=== PATIENT | male | born 1950 | race African-American/Black ===

== ENCOUNTER 2017-12-15 23:51 | Emergency (ER) | payer OTHER ==
[2017-12-16 01:15] LABS: Absolute Lymphocytes (CBC) 1.9 K/uL (0.7-4.9); Absolute Monocytes 1.1 K/uL (0.1-1.3); Absolute Neutrophil 16.8 K/uL (1.8-8.0); Basophils % 0.4 % (0-1.3); Eosinophils % 0.2 % (0-4.4); Lymphocytes % 9.4 % (15.3-44.8); MCH 27.2 pg (27.0-35.0); Monocytes % 5.5 % (3.3-12.3)
[2017-12-16] MEDS ORDERED: ACETAMINOPHEN 500 MG TAB ONE (02:10)
[2017-12-16 02:18] LABS: Protime INR 1.08
[2017-12-16 02:35] LABS: ALT/SGPT 19 U/L (12-78); AST/SGOT 15 U/L (15-37); Albumin 3.2 g/dL (3.4-5.0); Alkaline Phosphatase 127 U/L (45-117); BUN Blood Urea Nitrogen 15 mg/dL (7-18); Bicarbonate 32 mmol/L (21-32); Bilirubin Direct 0.1 mg/dL (0-0.2); Bilirubin Total 0.3 mg/dL (0.2-1.0); Glucose Level 133 mg/dL (74-106); Magnesium 1.5 mg/dL (1.8-2.4); NT PRO-BNP 395 pg/mL (<125); Potassium 4.6 mmol/L (3.5-5.1); Protein, Total 7.9 g/dL (6.4-8.2); Sodium Level 142 mmol/L (136-145); Troponin (Emerg Dept Use Only) < 0.02 ng/mL (0.0-0.045)
[2017-12-16] MEDS ORDERED: VANCOMYCIN 1 GM/VIAL ONE (02:59)
[2017-12-16] MEDS ORDERED: NA CHLORIDE 0.9% 500 ML ONE (02:59)
[2017-12-16] MEDS ORDERED: NA CHLORIDE 0.9% 1,000 ML ONE (03:00)
[2017-12-16] MEDS ORDERED: CEFTRIAXONE/SWI 1gm 2 GM/20 ML SYR ONE (03:00)
[2017-12-16] MEDS ORDERED: MAGNESIUM SULFATE 1 gm IVPB 1 GM/100 ML BAG IV ONE (03:01)
[2017-12-16] MEDS ORDERED: BENZONATATE 100 MG CAP PO ONE (04:58)
--- NOTE | 2017-12-16 05:49 | ER ---
Nurse's Notes [facility] Name: Cory Etienne Jr Age: 67 yrs Sex: Male : 1950 Arrival Date: 12/15/2017 Time: 23:51 Bed 4 Private MD: Diagnosis: Airway narrowing at the epiglotic/aryepiglotic folds Presentation: 12/15 23:55 Presenting complaint: Patient states: that he has a sore throat and has pain with fc swallowing. Started today. Transition of care: patient was not received from another setting of care. Onset of symptoms was December 15, 2017. Risk Assessment: Do you want to hurt yourself or someone else? Patient reports no desire to harm self or others. Initial Sepsis Screen: Does the patient meet any 2 criteria? RR > 20 per min. Temp <36.0*C (96.8*F)) or > 38.3*C (100.9*F). HR > 90 bpm. Does the patient have a suspected source of infection? Yes: Productive cough/pneumonia Other: sore throat. Care prior to arrival: None. 23:55 Method Of Arrival: Ambulatory 23:55 Acuity: SALOME 3 Triage Assessment: 12/16 00:45 Respiratory: the patient has mild shortness of breath. jd3 00:45 Respiratory: Onset: The symptoms/episode began/occurred at an unknown time. jd3 Historical: - Allergies: 00:12 Lisinopril; fc 00:12 Dilantin; fc 00:12 Morphine; fc - Home Meds: 00:12 omeprazole 40 mg Oral cpDR 1 cap once daily [Active]; [place] 7.5-325 mg Oral tab 1 tab fc three times a day [Active]; tamsulosin 0.4 mg oral cp24 1 cap once daily [Active]; metoprolol tartrate 50 mg Oral tab 1 tab 2 times per day [Active]; atorvastatin 80 mg oral tab 1 tab once daily [Active]; Lasix 80 mg Oral tab 1 tab 2 times per day [Active]; - PMHx: 00:12 Diabetes - IDDM; Hypertension; Angina; COPD; syncope; Obesity; tachycardia; High fc Cholesterol; - PSHx: 00:12 RIGHT FEMUR SX; LEFT SHOULDER SX; FENTANYL PAIN PUMP; BACK TUMOR REMOVAL; WRIST SX; fc Hernia repair; - Immunization history:: Last tetanus immunization: unknown, Flu vaccine is not up to date. - Social history:: Smoking status: Patient/guardian denies using tobacco. - Ebola Screening: : Patient negative for fever greater than or equal to 101.5 degrees Fahrenheit, and additional compatible Ebola Virus Disease symptoms Patient denies exposure to infectious person Patient denies travel to an Ebola-affected area in the 21 days before illness onset. Screenin:08 Abuse screen: Denies threats or abuse. Nutritional screening: No deficits noted. fc Tuberculosis screening: No symptoms or risk factors identified. Fall Risk None identified. Assessment: 00:10 General: Appears uncomfortable, Behavior is calm, cooperative, appropriate for age. jd3 Pain: Denies pain. Neuro: Level of Consciousness is awake, alert, obeys commands, Oriented to person, place, time, situation. Cardiovascular: Heart tones S1 S2 present Capillary refill < 3 seconds Patient's skin is warm and dry. Rhythm is irregular. Respiratory: Reports shortness of breath Airway is patent Respiratory effort is even, unlabored, Respiratory pattern is regular, symmetrical, Breath sounds are diminished pt with audible gurgling sounds with respirations pt denies having to clear throat. GI: Abdomen is obese, Patient currently denies abdominal pain, nausea, vomiting. : No signs and/or symptoms were reported regarding the genitourinary system. EENT: No signs and/or symptoms were reported regarding the EENT system. Derm: Skin is intact, Skin is dry, Skin is normal, Skin temperature is warm. Musculoskeletal: Circulation, motion, and sensation intact. Range of motion: intact in all extremities. 00:47 Reassessment: Patient appears in no apparent distress at this time. No changes from jd3 previously documented assessment. Patient and/or family updated on plan of care and expected duration. Pain level reassessed. Patient is alert, oriented x 3, equal unlabored respirations, skin warm/dry/pink. 01:39 Reassessment: Patient appears in no apparent distress at this time. No changes from jd3 previously documented assessment. Patient and/or family updated on plan of care and expected duration. Pain level reassessed. Patient is alert, oriented x 3, equal unlabored respirations, skin warm/dry/pink. 02:08 Reassessment: Patient appears in no apparent distress at this time. No changes from jd3 previously documented assessment. Patient and/or family updated on plan of care and expected duration. Pain level reassessed. Patient is alert, oriented x 3, equal unlabored respirations, skin warm/dry/pink. 03:11 Reassessment: Patient appears in no apparent distress at this time. No changes from jd3 previously documented assessment. Patient and/or family updated on plan of care and expected duration. Pain level reassessed. Patient is alert, oriented x 3, equal unlabored respirations, skin warm/dry/pink. 04:05 Reassessment: Patient appears in no apparent distress at this time. No changes from jd3 previously documented assessment. Patient and/or family updated on plan of care and expected duration. Pain level reassessed. Patient is alert, oriented x 3, equal unlabored respirations, skin warm/dry/pink. 05:08 Reassessment: Patient appears in no apparent distress at this time. No changes from jd3 previously documented assessment. Patient and/or family updated on plan of care and expected duration. Pain level reassessed. Patient is alert, oriented x 3, equal unlabored respirations, skin warm/dry/pink. 06:40 Reassessment: Patient appears in no apparent distress at this time. No changes from jd3 previously documented assessment. Patient and/or family updated on plan of care and expected duration. Pain level reassessed. Patient is alert, oriented x 3, equal unlabored respirations, skin warm/dry/pink. 07:30 Reassessment: Patient and/or family updated on plan of care and expected duration. Pain aa5 level reassessed. Report was given to MARIO Bolanos at [facility]. Pt and family were notified of wait time for EMS to transfer to [facility]. . Neuro: Level of Consciousness is awake, alert, obeys commands, Oriented to person, place, time, situation. Respiratory: Airway is patent Respiratory effort is even, unlabored. Derm: Skin is dry, Skin is normal, Skin temperature is warm. Vital Signs: 12/15 23:55 BP 135 / 96; Pulse 108; Resp 26; Temp 103.1(O); Pulse Ox 93% on R/A; Weight 172.37 kg fc (R); Height 5 ft. 9 in. (175.26 cm) (R); Pain 11/29; 12/16 00:47 Pulse 104; Resp 21 S; Pulse Ox 95% on 2 lpm NC; jd3 01:40 BP 155 / 106; Pulse 111; Resp 20 S; Pulse Ox 95% on 2 lpm NC; jd3 02:07 BP 171 / 75; Pulse 112; Resp 17 S; Temp 103.1(O); Pulse Ox 95% on 3 lpm NC; jd3 03:11 BP 155 / 76; Pulse 112; Resp 21 S; Pulse Ox 95% on 2 lpm NC; jd3 04:05 BP 129 / 60; Pulse 107; Resp 22 S; Pulse Ox 94% on 2 lpm NC; jd3 05:08 BP 135 / 64; Pulse 108; Resp 22 S; Temp 100.1(O); Pulse Ox 96% on 3 lpm NC; jd3 06:43 BP 122 / 79; Pulse 93; Resp 17 S; Pulse Ox 95% on 3 lpm NC; jd3 07:30 BP 145 / 88; Pulse 83; Resp 20 S; Temp 99.8(O); Pulse Ox 95% on 3 lpm NC; aa5 12/15 23:55 Body Mass Index 56.12 (172.37 kg, 175.26 cm) fc ED Course: 12/15 23:51 Patient arrived in ED. ag3 23:55 Arm band placed on Patient placed in an exam room, on a stretcher. fc 23:55 Patient has correct armband on for positive identification. Placed in gown. Bed in low fc position. Call light in reach. Side rails up X2. liquid chlorine operator on. Pulse ox on. NIBP on. 23:55 No provider procedures requiring assistance completed. fc 23:56 Varun Gallardo MD is Attending Physician. kdr 12/16 00:07 Triage completed. fc 00:19 Broderick Wolf RN is Primary Nurse. jd3 00:33 XRAY Chest (1 view) In Process Unspecified. EDMS 00:33 X-ray completed. Portable x-ray completed in exam room. Patient tolerated procedure ag1 well. 00:42 Radiology exam delayed due to lab results not completed at this time. (BUN/Creatinine). kw1 01:00 Inserted saline lock: 22 gauge in left antecubital area, using aseptic technique. Blood fc collected. 01:07 Radiology exam delayed due to lab results not completed at this time. (BUN/Creatinine). kw1 01:39 Radiology exam delayed due to lab results not completed at this time. (BUN/Creatinine). kw1 02:17 Radiology exam delayed due to lab results not completed at this time. (BUN/Creatinine). kw1 02:25 Lab(s) recollected, by me, sent to lab. Inserted 18 gauge 10 cm midline to right upper fc arm basilic vein on first attempt. Line with good blood return and flushes well. 03:49 CT Soft Tissue Neck W/contr In Process Unspecified. EDMS 03:[address] stretcher. kw1 06:46 pt declined at the [facility] by the ENT doctor behavioral modification assistant due to the physician and eb facility bot having the equipment to take care of the patient. 06:57 initiated a transfer with Day at the [facility]. eb 07:45 Patient transferred, IV remains in place. aa5 Administered Medications: 02:06 Drug: Tylenol 1000 mg Route: PO; jd3 04:21 Follow up: Response: No adverse reaction jd3 03:14 Drug: Rocephin - (cefTRIAXone) 2 grams Route: IVPB; Infused Over: 30 mins; Site: right jd3 antecubital; 04:21 Follow up: Response: No adverse reaction; IV Status: Completed infusion jd3 03:14 Drug: NS 0.9% 1000 ml Route: IV; Rate: 1 bolus; Site: left antecubital; jd3 03:15 Drug: Magnesium Sulfate 1 grams Route: IVPB; Infused Over: 1 hrs; Site: left jd3 antecubital; 04:57 Follow up: Response: No adverse reaction; IV Status: Completed infusion jd3 03:17 Drug: vancoMYCIN 15 mg/kg Route: IVPB; Site: right antecubital; jd3 05:51 Follow up: Response: No adverse reaction; IV Status: Completed infusion jd3 04:57 Drug: Tessalon Perle 200 mg Route: PO; jd3 05:43 Follow up: Response: No adverse reaction jd3 05:51 Drug: Decadron - Dexamethasone 10 mg Route: IVP; Site: left antecubital; jd3 Outcome: 05:48 ER care complete, transfer ordered by . kdr 07:45 Transferred by ground EMS to [facility], Transfer form completed. X-rays sent aa5 w/ patient. Note: Report given to Abiel ([facility]). 07:45 Condition: stable 07:45 Discharge instructions given to patient, family, Instructed on the need for transfer, Demonstrated understanding of instructions. 07:49 Patient left the ED. aa5 Signatures: Dispatcher [employer] EDMS Varun Gallardo MD MD [facility] Cait Robertson RN RN Shannan Najera RN RN aa5 Shilpi Ashby ag1 Broderick Wolf RN RN jd3 Rema Lindsay kw1 Apryl Farias Alice ag3 Corrections: (The following items were deleted from the chart) :45 00:38 General: Appears uncomfortable, Behavior is calm, cooperative, appropriate for jd3 age, jd3 00:38 Pain: Denies pain. jd3 jd3 00:38 Neuro: Level of Consciousness is awake, alert, obeys commands, Oriented to jd3 person, place, time, situation, jd3 00:38 Cardiovascular: Heart tones S1 S2 present Capillary refill < 3 seconds Patient's jd3 skin is warm and dry. Rhythm is irregular jd3 00:38 Respiratory: Reports shortness of breath Airway is patent Respiratory effort is jd3 even, labored, Respiratory pattern is regular, symmetrical, Breath sounds are diminished pt with audible gurgling sounds with respirations pt denies having to clear throat. jd3 00:38 GI: Abdomen is obese, Patient currently denies abdominal pain, nausea, vomiting, jd3 jd3 00:38 : No signs and/or symptoms were reported regarding the genitourinary system. jd3jd3 : 00:38 EENT: No signs and/or symptoms were reported regarding the EENT system. jd3 jd3 00:38 Derm: Skin is intact, Skin is dry, Skin is normal, Skin temperature is warm jd3 jd3 00:38 Musculoskeletal: Circulation, motion, and sensation intact. Range of motion: jd3 intact in all extremities, jd3 00:47 00:10 Respiratory: Reports shortness of breath Airway is patent Respiratory effort is jd3 even, labored, Respiratory pattern is regular, symmetrical, Breath sounds are diminished pt with audible gurgling sounds with respirations pt denies having to clear throat. jd3 06:44 06:41 BP 147 / 89; Pulse 93bpm; Resp 17bpm; Spontaneous; Pulse Ox 95% 3 lpm Nasal jd3 Cannula; jd3
--- NOTE | 2017-12-16 05:49 | EDPHYS ---
Physician Documentation [facility] Name: Cory Etienne Jr Age: 67 yrs Sex: Male : 1950 Arrival Date: 12/15/2017 Time: 23:51 Bed 4 Private MD: ED Physician Varun Gallardo HPI: 12/16 00:02 This 67 yrs old Black Male presents to ER via Unassigned with complaints of Breathing kdr Difficulty. 00:02 The patient has shortness of breath at rest, with light activity. Onset: The kdr symptoms/episode began/occurred today. Duration: The symptoms are continuous, and are steadily getting worse. The patient's shortness of breath is aggravated by light activity, is alleviated by nothing. Associated signs and symptoms: Pertinent positives: Pertinent negatives: productive cough, diaphoresis, dizziness, fever, hemoptysis, nausea, numbness in extremities. Severity of symptoms: At their worst the symptoms were moderate just prior to arrival, in the emergency department the symptoms are unchanged. The patient has not experienced similar symptoms in the past. The patient has not recently seen a physician. Historical: - Allergies: 00:12 Lisinopril; fc 00:12 Dilantin; fc 00:12 Morphine; fc - Home Meds: 00:12 omeprazole 40 mg Oral cpDR 1 cap once daily [Active]; [place] 7.5-325 mg Oral tab 1 tab fc three times a day [Active]; tamsulosin 0.4 mg oral cp24 1 cap once daily [Active]; metoprolol tartrate 50 mg Oral tab 1 tab 2 times per day [Active]; atorvastatin 80 mg oral tab 1 tab once daily [Active]; Lasix 80 mg Oral tab 1 tab 2 times per day [Active]; - PMHx: 00:12 Diabetes - IDDM; Hypertension; Angina; COPD; syncope; Obesity; tachycardia; High fc Cholesterol; - PSHx: 00:12 RIGHT FEMUR SX; LEFT SHOULDER SX; FENTANYL PAIN PUMP; BACK TUMOR REMOVAL; WRIST SX; fc Hernia repair; - Immunization history:: Last tetanus immunization: unknown, Flu vaccine is not up to date. - Social history:: Smoking status: Patient/guardian denies using tobacco. - Ebola Screening: : Patient negative for fever greater than or equal to 101.5 degrees Fahrenheit, and additional compatible Ebola Virus Disease symptoms Patient denies exposure to infectious person Patient denies travel to an Ebola-affected area in the 21 days before illness onset. ROS: 00:02 Constitutional: Negative for fever, chills, and weight loss, Eyes: Negative for injury, kdr pain, redness, and discharge, Neck: Negative for injury, pain, and swelling, Cardiovascular: Negative for chest pain, palpitations, and edema, Respiratory: Negative for shortness of breath, cough, wheezing, and pleuritic chest pain. 00:02 Abdomen/GI: Positive for Sore throat, Negative for nausea, vomiting, and diarrhea, nausea, vomiting, abdominal cramps, abdominal distension, anorexia, dysphagia, hematemesis, black/tarry stool, rectal pain. Exam: 00:02 Constitutional: This is a well developed, well nourished patient who is awake, alert, kdr and in no acute distress. Head/Face: Normocephalic, atraumatic. Eyes: Pupils equal round and reactive to light, extra-ocular motions intact. Lids and lashes normal. Conjunctiva and sclera are non-icteric and not injected. Cornea within normal limits. Periorbital areas with no swelling, redness, or edema. Chest/axilla: Normal chest wall appearance and motion. Nontender with no deformity. No lesions are appreciated. Cardiovascular: Regular rate and rhythm with a normal S1 and S2. No gallops, murmurs, or rubs. Normal PMI, no JVD. No pulse deficits. Respiratory: Lungs have equal breath sounds bilaterally, clear to auscultation and percussion. No rales, rhonchi or wheezes noted. No increased work of breathing, no retractions or nasal flaring. Abdomen/GI: Soft, non-tender, with normal bowel sounds. No distension or tympany. No guarding or rebound. No evidence of tenderness throughout. 00:02 Neck: External neck: The patient has a very thick neck and an exam is limited. No apparent retropharyngeal abscess. Vital Signs: 12/15 23:55 BP 135 / 96; Pulse 108; Resp 26; Temp 103.1(O); Pulse Ox 93% on R/A; Weight 172.37 kg fc (R); Height 5 ft. 9 in. (175.26 cm) (R); Pain 10/; 12/16 00:47 Pulse 104; Resp 21 S; Pulse Ox 95% on 2 lpm NC; jd3 01:40 BP 155 / 106; Pulse 111; Resp 20 S; Pulse Ox 95% on 2 lpm NC; jd3 02:07 BP 171 / 75; Pulse 112; Resp 17 S; Temp 103.1(O); Pulse Ox 95% on 3 lpm NC; jd3 03:11 BP 155 / 76; Pulse 112; Resp 21 S; Pulse Ox 95% on 2 lpm NC; jd3 04:05 BP 129 / 60; Pulse 107; Resp 22 S; Pulse Ox 94% on 2 lpm NC; jd3 05:08 BP 135 / 64; Pulse 108; Resp 22 S; Temp 100.1(O); Pulse Ox 96% on 3 lpm NC; jd3 06:43 BP 122 / 79; Pulse 93; Resp 17 S; Pulse Ox 95% on 3 lpm NC; jd3 07:30 BP 145 / 88; Pulse 83; Resp 20 S; Temp 99.8(O); Pulse Ox 95% on 3 lpm NC; aa5 12/15 23:55 Body Mass Index 56.12 (172.37 kg, 175.26 cm) fc MDM: 00:02 Data reviewed: vital signs, nurses notes. kdr 05:48 Patient medically screened. kdr 12/15 23:56 Order name: Basic Metabolic Panel; Complete Time: 03:45 kdr 12/15 23:56 Order name: CBC with Diff; Complete Time: 02:15 kdr 12/15 23:56 Order name: LFT's; Complete Time: 03:45 kdr 12/15 23:56 Order name: Magnesium; Complete Time: 03:45 kdr 12/15 23:56 Order name: NT PRO-BNP kdr 12/15 23:56 Order name: PT-INR; Complete Time: 03:45 kdr 12/15 23:56 Order name: Troponin (emerg Dept Use Only); Complete Time: 03:45 kdr 12/15 23:56 Order name: XRAY Chest (1 view) kdr 12/15 23:57 Order name: NT PRO-BNP; Complete Time: 03:45 EDMS 12/16 00:02 Order name: CT Soft Tissue Neck W/contr kdr 12/16 02:18 Order name: Blood Culture Adult (2) kdr 12/16 02:26 Order name: Lactate; Complete Time: 03:45 kdr 12/16 02:26 Order name: Procalcitonin; Complete Time: 03:45 kdr 12/15 23:56 Order name: EKG; Complete Time: 23:57 kdr 12/15 23:56 Order name: Cardiac monitoring; Complete Time: 00:37 kdr 12/15 23:56 Order name: EKG - Nurse/Tech; Complete Time: 00:37 kdr 12/15 23:56 Order name: IV Saline Lock; Complete Time: 00:51 kdr 12/15 23:56 Order name: Labs collected and sent; Complete Time: 00:51 kdr 12/15 23:56 Order name: O2 Per Protocol; Complete Time: 00:36 kdr 12/15 23:56 Order name: O2 Sat Monitoring; Complete Time: 00:36 kdr Administered Medications: 02:06 Drug: Tylenol 1000 mg Route: PO; jd3 04:21 Follow up: Response: No adverse reaction jd3 03:14 Drug: Rocephin - (cefTRIAXone) 2 grams Route: IVPB; Infused Over: 30 mins; Site: right d3 antecubital; 04:21 Follow up: Response: No adverse reaction; IV Status: Completed infusion jd3 03:14 Drug: NS 0.9% 1000 ml Route: IV; Rate: 1 bolus; Site: left antecubital; jd3 03:15 Drug: Magnesium Sulfate 1 grams Route: IVPB; Infused Over: 1 hrs; Site: left jd3 antecubital; 04:57 Follow up: Response: No adverse reaction; IV Status: Completed infusion jd3 03:17 Drug: vancoMYCIN 15 mg/kg Route: IVPB; Site: right antecubital; jd3 05:51 Follow up: Response: No adverse reaction; IV Status: Completed infusion jd3 04:57 Drug: Tessalon Perle 200 mg Route: PO; jd3 05:43 Follow up: Response: No adverse reaction jd3 05:51 Drug: Decadron - Dexamethasone 10 mg Route: IVP; Site: left antecubital; jd3 Disposition: 12/16/17 05:48 Transfer ordered to [facility]. Diagnosis is Airway narrowing at the epiglotic/aryepiglotic folds. - Reason for transfer: Higher level of care. - Accepting physician is . - Condition is Serious. - Problem is new. - Symptoms have improved. Signatures: Dispatcher [employer] EDMS Varun Gallardo MD MD kdr Cait Robertson RN RN Shannan Najera RN RN aa5 Broderick Wolf RN RN jd3 Corrections: (The following items were deleted from the chart) 07:42 02:25 Urine Dipstick-Ancillary ordered. prince aa5 07:49 05:48 12/16/2017 05:48 Transfer ordered to [facility]. Diagnosis is aa5 Airway narrowing at the epiglotic/aryepiglotic folds. Reason for transfer: Higher level of care. Accepting physician is . Condition is Serious. Problem is new. Symptoms have improved. kdr
[2017-12-16] MEDS ORDERED: DEXAMETHASONE 10 MG/ML VIAL ONE (05:51)
[2017-12-16 08:03] VITALS: O2SAT 95
[2017-12-16 08:04] VITALS: BP 145/88; TEMP 99.8
--- NOTE | 2017-12-16 09:55 | RAD REPORT ---
EXAM DESCRIPTION: RAD - Chest Single View - 12/16/2017 12:33 am CLINICAL HISTORY: Shortness of breath, difficulty breathing, dyspnea COMPARISON: March 31 TECHNIQUE: AP portable chest image was obtained 0017 hours . FINDINGS: Exam is very limited. There shallow inspiration, rotation and motion degradation. Very lar ge body habitus limits the assessment. No peripheral consolidation or mass suspected. Lung markings are not substantially different. Vascula ture and heart size are questionably increased over the comparison. Failure/ volume overload not excl uded. Trachea is midline. No measurable pleural effusion and no pneumothorax. No acute bony abnormali ty seen. No acute aortic findings suspected. IMPRESSION: Exam has significant limitations. No peripheral consolidation or mass. A mild failure or volume overload is not excluded.
--- NOTE | 2017-12-16 10:36 | RAD REPORT ---
EXAM DESCRIPTION: CT - Soft Tissue Neck W/Contr - 12/16/2017 6:43 am CLINICAL HISTORY: Sore throat, difficulty swallowing A preliminary report was provided at the time of the study and reviewed prior to final report. TECHNIQUE: Axial 3 millimeter thick images of the lower head and neck obtained without IV contrast. All CT scans are performed using dose optimization technique as appropriate and may include automated exposure control or mA/KV adjustment according to patient size. FINDINGS: Limited intracranial assessment is unremarkable. Partially imaged orbits and paranasal sin uses show no suspicious findings. Mastoid air cells are clear. No air or foreign body identified. Nasopharyngeal mucosa unremarkable. No retropharyngeal mass or abscess identifiable. There is asymmetric enlargement of the right-side tonsil. This extends inferiorly into the right late ral and post oral lateral supraglottic soft tissues. There is spray artifact which limits detail. Lac k of contrast also limits detail. Soft tissue mass component is estimated at least 2.5 cm in size and possibly larger. There is mass-effect narrowing the airway. Epiglottis involvement is suspected. Holly leculae and piriform sinuses are mostly effaced. 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 No bulky lymphadenopathy seen. Prominent cervical spine degenerative changes are present. IMPRESSION: Asymmetrically enlarged right tonsil continuing inferiorly into the soft tissue mass eff ect in the right lateral and post oral lateral supraglottic tissues. Mass effect is at least 2.5 cm i n size and possibly larger. Mass-effect causes compromise of the airway. Epiglottis, valleculae and piriform sinuses appear secon darily involved or effaced by the mass effect. No specific findings on noncontrast imaging to suspect infection or abscess etiology. This remains a possibility. In a patient this age head and neck malignancy would be a consideration. 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 This is a consideration in this setting of any biopsy proc edure. If tolerable, MRI or CT imaging with contrast would be helpful.
--- NOTE | 2017-12-17 19:18 | EKG ---
Test Date: 2017-12-16 Test Time: 00:17:02 Safety And Security Manager: SAMI MEASUREMENT RESULTS: Intervals: Rate: 114 FL: 134 QRSD: 80 QT: 314 QTc: 432 [place]: P: 47 FL: 134 QRS: 23 T: 142 INTERPRETIVE STATEMENTS: Undetermined rhythm Nonspecific T wave abnormality Abnormal ECG Compared to ECG 12/24/2014 06:37:14 Sinus rhythm no longer present Possible ischemia no longer present Prolonged QT interval no longer present T-wave abnormality still present Electronically Signed On 12-17-17 19:15:09 CDT by Akash Jose
== END 2017-12-16 07:49 | disposition short-term general hospital (02) ==
LOC: ER 23:51
DX: J98.8 Other specified respiratory disorders (principal); I10 Essential (primary) hypertension; E11.9 Type 2 diabetes mellitus without complications; J44.9 Chronic obstructive pulmonary disease, unspecified; E78.00 Pure hypercholesterolemia, unspecified; Z88.5 Allergy status to narcotic agent; Z88.8 Allergy status to other drugs, medicaments and biological substances
CPT/HCPCS: 36415; 70491; 71045; 80048; 80076; 82962; 83605; 83735; 83880; 84145; 84484; 85025; 85610; 87040 ×2; 93005; 99285; J0696; J1100; J3475; J7030